=== PATIENT | female | born 1960 | race Hispanic/Latino ===

== ENCOUNTER 2017-09-25 19:07 | Emergency (ER) | payer OTHER ==
[2017-09-25 19:12] VITALS: BP 141/69; PULSE 77; RESP 18; TEMP 97.2; O2SAT 99
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
--- NOTE | 2017-09-26 08:25 | CT ---
PROCEDURE: CT HEAD WITHOUT CONTRAST. HISTORY: head injury, dizziness COMPARISON: None available. TECHNIQUE: Axial computed tomography images were obtained through the head/brain without intravenous contrast. Radiation dose: Total exam DLP = 1172.83 mGy-cm. This CT exam was performed using one or more of the following dose reduction techniques: Automated exposure control, adjustment of the mA and/or kV according to patient size, and/or use of iterative reconstruction technique. FINDINGS: HEMORRHAGE: No intracranial hemorrhage. BRAIN: Quijano-white matter differentiation is preserved. There is no mass, mass effect or abnormal extra-axial fluid collection. VENTRICLES: The ventricles are normal in size, shape and configuration. CALVARIUM: The skull base and calvarium are normal. PARANASAL SINUSES: There is minimal mucosal thickening in the right maxillary sinus and moderate mucoperiosteal thickening in the ethmoid air cells. The remaining included paranasal sinuses are clear. MASTOID AIR CELLS: Predominantly clear. OTHER FINDINGS: None. IMPRESSION: No acute intracranial abnormality. Chronic sinusitis, minimal in the right maxillary sinus and moderate in the ethmoid air cells. A preliminary report was provided by [employer].
--- NOTE | 2017-09-26 10:39 | RAD ---
PROCEDURE: Right Knee Radiographs. HISTORY: patella injury COMPARISON: None. FINDINGS: BONES: Bone alignment and mineralization are normal. No fracture. JOINTS: Normal. No osteoarthritis. JOINT EFFUSION: None. OTHER FINDINGS: None. IMPRESSION: No acute displaced fracture or dislocation.
== END 2017-09-25 22:15 | disposition home or self-care (01) ==
LOC: H.ER 19:07
DX: S80.211A Abrasion, right knee, initial encounter (principal); S60.511A Abrasion of right hand, initial encounter; V01.90XA Pedestrian on foot injured in collision with pedal cycle, unspecified whether traffic or nontraffic accident, initial encounter; Z23 Encounter for immunization

== ENCOUNTER 2019-01-31 20:00 | Emergency (ER) | payer OTHER ==
[2019-01-31 20:19] VITALS: BP 159/93; PULSE 101; RESP 16; TEMP 98.8; O2SAT 96
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
--- NOTE | 2019-02-01 10:00 | CT ---
Date of service: 01/31/2019 PROCEDURE: CT HEAD WITHOUT CONTRAST. HISTORY: s/p fall with head trauma, no LOC COMPARISON: 09/25/2017 TECHNIQUE: Axial computed tomography images were obtained through the head/brain without intravenous contrast. Radiation dose: Total exam DLP = 800.61 mGy-cm. This CT exam was performed using one or more of the following dose reduction techniques: Automated exposure control, adjustment of the mA and/or kV according to patient size, and/or use of iterative reconstruction technique. FINDINGS: HEMORRHAGE: No intracranial hemorrhage. BRAIN: No mass effect or edema. No atrophy or chronic microvascular ischemic changes. The hyperdensity projecting over the brainstem janneth on the sagittal images similar to the prior appearance this is difficult to corroborate in other planes this can be seen with artifact. More sensitive evaluation is needed consider MRI of the brain Technical related factors are favored. VENTRICLES: Unremarkable. No hydrocephalus. CALVARIUM: Unremarkable. PARANASAL SINUSES: . Chronic mucosal changes in the right maxillary sinus are not of visual the as conspicuous-however also all of the maxillary sinuses are not the as fully included on this CT exam is a were before. There are few ethmoidal air cell inflammatory changes present that appear less now than before MASTOID AIR CELLS: Unremarkable as visualized. No inflammatory changes. OTHER FINDINGS: None. IMPRESSION: No intracranial hemorrhage or mass effect. These findings were mention and/or concordant with the prior [facility] preliminary report. The subsequent findings mention in this report were not: Probable sagittal depicted artifact related hypodensity projecting over brainstem janneth-a similar appearance on the prior study. Not corroborated in other planes. If more sensitive evaluation is needed consider MRI of the brain. Affect is favored. Interval improvement in the prior paranasal sinus inflammatory changes as above.
== END 2019-01-31 23:47 | disposition home or self-care (01) ==
LOC: H.ER 20:00
DX: S09.90XA Unspecified injury of head, initial encounter (principal); S06.0X9A Concussion with loss of consciousness of unspecified duration, initial encounter; V79.88XA Bus occupant (driver) (passenger) injured in other specified transport accidents, initial encounter; G51.39 Clonic hemifacial spasm, unspecified; E06.3 Autoimmune thyroiditis; Z79.899 Other long term (current) drug therapy